=== PATIENT | male | born 1965 | race Caucasian/White ===

== ENCOUNTER → 2025-02-15 11:20 | Outpatient (REF) | payer OTHER, SELFPAY ==
[2025-02-15 19:46] LABS: Rubella Positive
[2025-02-17 07:26] LABS: Quantiferon Mitogen minus NIL 9.97 IU/mL; Quantiferon NIL 0.03 IU/mL; Quantiferon TB Gold Plus Negative (Negative)
== END ==
LOC: OHS 11:20
PROVIDERS: ATTENDING PHYSICIAN Nurse Practitioner Family
DX: Z23 Encounter for immunization (principal)
CPT/HCPCS: 36415; 86480; 86735; 86762; 86765; 86787